=== PATIENT | male | born 1995 | race African-American/Black ===

== ENCOUNTER 2017-09-03 09:52 | Emergency (ER) | payer OTHER ==
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
== END 2017-09-03 10:33 | disposition home or self-care (01) ==
LOC: JD.ED 09:52
DX: R07.9 Chest pain, unspecified (principal); V40.5XXA Car driver injured in collision with pedestrian or animal in traffic accident, initial encounter
CPT/HCPCS: 99284

== ENCOUNTER 2022-11-16 08:42 | Emergency (ER) | payer OTHER ==
[2022-11-16] MEDS ORDERED: Aspirin 81 MG Tab.Chew PO ONE (09:06)
[2022-11-16 09:52] LABS: BASOPHILS ABSOLUTE AUTO 0.01 K/mm3 (0.01-0.08); BASOPHILS PERCENT AUTO 0.2 % (0.1-1.2); EOSINOPHILS ABSOLUTE AUTO 0.07 K/mm3 (0.04-0.54); EOSINOPHILS PERCENT AUTO 1.1 (0.8-7.0); HEMATOCRIT 42.6 % (40.1-51.0); IMMATURE GRAN ABSOLUTE AUTO 0.02 K/mm3 (0.00-0.10); IMMATURE GRAN PERCENT AUTO 0.3 % (<=1.0); LYMPHOCYTES ABSOLUTE AUTO 1.62 K/mm3 (1.32-3.57); LYMPHOCYTES PERCENT AUTO 26.4 % (21.8-53.1); MEAN CORPUSCULAR HEMOGLOBIN 26.8 pg (25.7-32.2); MEAN CORPUSCULAR HGB CONC 32.9 g/dl (32.2-35.5); MEAN CORPUSCULAR VOLUME 81.6 fl (79.0-92.2); MEAN PLATELET VOLUME 10.8 fl (9.4-12.3); MONOCYTES PERCENT AUTO 9.8 % (5.3-12.2); NEUTROPHILS ABSOLUTE AUTO 3.81 K/mm3 (1.78-5.38); NEUTROPHILS PERCENT AUTO 62.2 % (34.0-67.9); PLATELET COUNT,PLT 220 K/mm3 (163-337); RED BLOOD CELL COUNT 5.22 M/mm3 (4.63-6.08); WHITE BLOOD CELL COUNT,WBC 6.13 K/mm3 (4.23-9.07)
[2022-11-16 10:10] LABS: A/G RATIO 0.8 (1-2); ALANINE AMINOTRANSFERASE,ALT 113 U/L (16-63); ALBUMIN 3.9 g/dl (3.4-5.0); ALKALINE PHOSPHATASE 85 U/L (46-116); ANION GAP 9.3 (5-15); ASPARTATE AMNIOTRANSFERASE,AST 44 U/L (15-37); BILIRUBIN TOTAL 0.6 mg/dL (0.2-1.0); BLOOD UREA NITROGEN,BUN 13 mg/dL (7-18); BUN/CREATININE RATIO 11.8 (14-18); CALCIUM 9.2 mg/dL (8.5-10.1); CARBON DIOXIDE,CO2 31 mEq/L (21-32); CHLORIDE,CL 103 mEq/L (98-107); CREATININE 1.1 mg/dL (0.7-1.3); EST CRCL DRUG DOSING (CG) 108.39 mL/min; ESTIMATED GFR 95 mL/min (>60); GLUCOSE RANDOM 95 mg/dL (70-99); POTASSIUM,K 4.3 mEq/L (3.5-5.1); PROTEIN TOTAL,TP 8.6 g/dl (6.4-8.2); SODIUM,NA 139 mEq/L (136-145)
[2022-11-16 10:16] LABS: TROPONIN I HIGH SENSITIVITY < 4 pg/mL (<=76)
== END 2022-11-16 10:24 | disposition home or self-care (01) ==
LOC: JD.ED 08:42
DX: R07.89 Other chest pain (principal)
CPT/HCPCS: 36415; 71045; 80053; 84484; 85025; 93005; 99285; A9270; 93010; 99284

== ENCOUNTER 2024-12-08 06:16 | Emergency (ER) | payer OTHER ==
[2024-12-08] MEDS: Ketorolac 60 MG/2 ML SDV IM ONE (07:12)
[2024-12-08] MEDS: cefTRIAXone 1 GM, Lidocaine 1% 2.1 ML IM ONE (07:13)
== END 2024-12-08 07:30 | disposition home or self-care (01) ==
LOC: JD.ED 06:16
DX: K04.7 Periapical abscess without sinus (principal); Z79.899 Other long term (current) drug therapy
CPT/HCPCS: 96372; 99282; J0696; J1885; J2003